=== PATIENT | male | born 1985 | race Caucasian/White ===

== ENCOUNTER 2024-07-20 06:55 | Observation (INO) | payer OTHER ==
[2024-07-20] MEDS ORDERED: ACETAMINOPHEN INJECTION 100 ML IVPB ONE (07:45)
[2024-07-20] MEDS ORDERED: MAG HYDROX/AL HYDROX/SIMETH 30 ML UNIT-DOSE CUP ONE (07:46)
[2024-07-20] MEDS ORDERED: FAMOTIDINE 20 MG/50 ML IVPB 20 MG/50 ML MG IVPB ONE (07:46)
[2024-07-20] MEDS: MAG HYDROX/AL HYDROX/SIMETH 30 ML UNIT-DOSE CUP PO ONE (07:55)
[2024-07-20] MEDS: ACETAMINOPHEN 1000 MG/100 ML BAG IVPB ONE (07:55)
[2024-07-20] MEDS: FAMOTIDINE 20 MG/50 ML IVPB 20 MG/50 ML MG IVPB ONE (07:56)
[2024-07-20 08:00] LABS: BASO % 0.4 % (0-2.0); EOS % 1.6 % (0-4.5); HEMATOCRIT 49.2 % (35.4-49); LYMPH % 18.2 % (8-40); MCH 29.6 pg (25.7-33.7); MCHC 34.5 g/dl (32.0-35.9); MEAN CELL VOLUME 85.8 fl (80-96); MEAN PLT VOLUME 8.5 fl (7.5-11.1); MONO % 4.5 % (3.8-10.2); NEUT % 75.3 % (42.8-82.8); PLATELET COUNT 215 10^3/uL (134-434); RBC 5.73 M/mm3 (4.00-5.60); RDW 13.8 % (11.9-15.9); WHITE BLOOD COUNT 10.1 K/mm3 (4.0-10.0)
[2024-07-20 08:13] LABS: POTASSIUM 4.1 mmol/L (3.5-5.1)
[2024-07-20 08:16] LABS: ALBUMIN 4.1 g/dl (3.4-5.0); BLOOD UREA NITROGEN 12.4 mg/dL (7-18); CALCIUM 9.1 mg/dL (8.5-10.1); MAGNESIUM 2.2 mg/dL (1.8-2.4)
[2024-07-20 08:19] LABS: CREATININE 0.8 mg/dL (0.55-1.3)
[2024-07-20 08:21] LABS: BILIRUBIN,TOTAL 0.7 mg/dL (0.2-1); TOT PROT 7.4 g/dl (6.4-8.2)
[2024-07-20 08:35] LABS: EPI CELLS 1 /uL (0-25.1); HYALINE CASTS 0 /uL (0-3.1); PH,URINE 5.5 (5.0-8.0); URINE APPEARANCE CLEAR; URINE BACTERIA 0 /uL (0-1359); URINE BILIRUBIN NEGATIVE (NEGATIVE); URINE COLOR YELLOW; URINE GLUCOSE (UA) NEGATIVE (NEGATIVE); URINE KETONE NEGATIVE (NEGATIVE); URINE LEUK ESTERASE NEGATIVE (NEGATIVE); URINE NITRITE NEGATIVE (NEGATIVE); URINE PROTEIN NEGATIVE (NEGATIVE); URINE RBC 6 /uL (0-23.9); URINE UROBILINOGEN 0.2 mg/dL (0.2-1.0); URINE WBC 6 /uL (0-25.8)
[2024-07-20] MEDS: LACTATED RINGERS SOLUTION 1000 ML INFUS.BAG IV ONE ×2 (09:01→18:30)
[2024-07-20] MEDS: KETOROLAC TROMETHAMINE 15 MG/ML VIAL IVPUSH ONE (09:21)
[2024-07-20] MEDS ORDERED: morphine SULFATE 4 MG/ML VIAL ONE ×2 (09:40→18:19)
[2024-07-20] MEDS: morphine CARPU-JECT 4 MG/1 ML DISP.SYRIN IVPUSH ONE ×2 (09:54→18:30)
[2024-07-20] MEDS ORDERED: ONDANSETRON 4 MG/2 ML VIAL ONE ×2 (18:19→21:45)
[2024-07-20] MEDS: ONDANSETRON 4 MG/2 ML VIAL IVPUSH ONE (18:30)
[2024-07-20] MEDS ORDERED: ACETAMINOPHEN 1000 MG/100 ML BAG IVPB PRN (20:18)
[2024-07-20] MEDS ORDERED: ACETAMINOPHEN INJECTION 100 ML ONE (21:45)
[2024-07-20] MEDS: ONDANSETRON 4 MG/2 ML VIAL IVPUSH PRN (21:52)
[2024-07-20] MEDS: ACETAMINOPHEN 1000 MG/100 ML BAG IVPB SCH (21:52)
[2024-07-20] MEDS: DEXTROSE 5%-0.45% SALINE 1,000 ML IV SCH (22:15)
[2024-07-20] MEDS ORDERED: morphine SULFATE 4 MG/ML VIAL IVPUSH PRN (22:30)
[2024-07-20] MEDS ORDERED: MORPHINE SULFATE 2 MG/ML SYRINGE IVPUSH PRN (22:30)
[2024-07-20 23:37] VITALS: BMI 30.4
[2024-07-21 08:56] LABS: INR 0.97 (0.83-1.09)
[2024-07-21 08:59] LABS: ACTIVATED PTT 32.2 SECONDS (25.2-36.5)
[2024-07-21 09:01] LABS: BASO % 0.4 % (0-2.0); EOS % 3.9 % (0-4.5); HEMATOCRIT 43.7 % (35.4-49); HEMOGLOBIN 14.7 GM/dL (11.7-16.9); MCH 29.2 pg (25.7-33.7); MCHC 33.7 g/dl (32.0-35.9); MEAN CELL VOLUME 86.7 fl (80-96); MEAN PLT VOLUME 8.8 fl (7.5-11.1); MONO % 5.1 % (3.8-10.2); NEUT % 69.6 % (42.8-82.8); PLATELET COUNT 189 10^3/uL (134-434); RBC 5.04 M/mm3 (4.00-5.60); RDW 13.5 % (11.9-15.9); WHITE BLOOD COUNT 7.5 K/mm3 (4.0-10.0)
[2024-07-21 09:08] LABS: POTASSIUM 3.7 mmol/L (3.5-5.1)
[2024-07-21 09:11] LABS: CALCIUM 8.7 mg/dL (8.5-10.1)
[2024-07-21 09:12] LABS: BLOOD UREA NITROGEN 8.1 mg/dL (7-18)
[2024-07-21 09:15] LABS: CREATININE 0.8 mg/dL (0.55-1.3)
[2024-07-22] MEDS: ACETAMINOPHEN 500 MG TABLET (FP) PO PRN (09:41)
[2024-07-22 10:57] VITALS: BP 129/89; PULSE 69; RESP 20; TEMP 98.8
== END 2024-07-22 15:12 | disposition home or self-care (01) ==
LOC: JER 06:55 → JERBED 16:38 → J8W 23:30
PROVIDERS: ADMIT Internal Medicine; ATTEND Internal Medicine
PROC: 3E033NZ Introduction of Analgesics, Hypnotics, Sedatives into Peripheral Vein, Percutaneous Approach (ICD-10-PCS; principal; 2024-07-20)
PROC: 3E033GC Introduction of Other Therapeutic Substance into Peripheral Vein, Percutaneous Approach (ICD-10-PCS; 2024-07-20)
PROC: 3E0337Z Introduction of Electrolytic and Water Balance Substance into Peripheral Vein, Percutaneous Approach (ICD-10-PCS; 2024-07-20)
DX: K56.609 Unspecified intestinal obstruction, unspecified as to partial versus complete obstruction (principal); E78.5 Hyperlipidemia, unspecified; K57.90 Diverticulosis of intestine, part unspecified, without perforation or abscess without bleeding; Z90.49 Acquired absence of other specified parts of digestive tract
CPT/HCPCS: 36415; 74018-TC-FY; 74021-TC-FY; 74176-TC; 74177-TC; 80048; 80053; 81003; 83690; 83735; 84484; 85025; 85610; 85730; 87086; 93005; 93010; 96361; 96365; 96375; 96376; 99285-25; G0378; J0131; Q9967